=== PATIENT | female | born 1940 | race Caucasian/White ===

== ENCOUNTER → 2017-01-25 | Outpatient (CLI) | payer OTHER ==
[~2017-01-25] MED LIST: AMITRYPTYLINE PO; BACTRIM DS TABL1 TAB PO; DICYCLOMINE HCL20 MG PO; ZOLOFT PO
--- NOTE | ~2017-01-25 | US37 ---
[facility] A Service of [facility] RADIOLOGY TEXT RESULTS PATIENT: AV CRUZ LOCATION: CNIV : 41 UNIT #: [id number] AGE: [address]: Danish Mcqueen MD SEX: F ORDER DR: [id number] [facility] [address] [place], [place] [address] [id number] MR#: [id number] Acc #: [id number] NAME: AV CRUZ : 1940 SEX: F STUDY DATE/TIME: 01/25/2017 9:12 UNIT: CNIV ROOM: STUDY DESCRIPTION: US Carotid W/Doppler Bilateral Attending Physician: Danish Mcqueen M.D. Referring Physician: Danish Mcqueen M.D. Ordering Physician: Danish Mcqueen M.D. Primary Care Physician: Danish Mcqueen M.D. MEDICAL IMAGING REPORT This report is preliminary unless electronic signature is present EXAM Carotid Doppler 01/25/2017 HISTORY Headache and dizziness as well as high blood pressure and high cholesterol. Symptoms have been present for 1 year. TECHNIQUE Bilateral carotid ultrasound examination was performed using davis scale, spectral Doppler and color flow Doppler imaging. Carotid flow was assessed using standards based on NASCET methodology. FINDINGS Ultrasound examination of the carotid arteries does show some mild to moderate plaque involving the carotid bulbs bilaterally. Doppler evaluation shows elevated peak systolic flow velocity in the right internal carotid artery measuring up to 136 cm/sec and within the left internal carotid artery measuring up to 168 cm/sec indicating a flow limiting stenosis of 50%-69%. Both vertebral arteries are patent with normal antegrade flow. IMPRESSION 1. Bilateral 58%-69% stenosis of the internal carotid arteries. 2. Both vertebral arteries are patent with normal antegrade flow. Dictated by... Deisy Franco M.D. THIS IS AN ELECTRONICALLY VERIFIED REPORT Deisy Franco M.D. at 01/26/2017 10:37 AM AFF/jf [facility] A Service of [facility] RADIOLOGY TEXT RESULTS PATIENT: AV CRUZ LOCATION: CNIV : 41 UNIT #: [id number] AGE: [address]: Danish Mcqueen MD SEX: F ORDER DR: TD: 01/25/2017 18:35 JOB #: [id number] MEDICAL IMAGING REPORT Page 1 of 1 COPY
== END | disposition home or self-care (01) ==
LOC: CNIV 08:48
DX: I65.23 Occlusion and stenosis of bilateral carotid arteries (principal)
CPT/HCPCS: 93880